=== PATIENT | male | born 1975 | race Caucasian/White ===

== ENCOUNTER 2025-01-15 05:52 | Day surgery (SDC) | payer OTHER ==
[~2025-01-15] VITALS: Ht 172.7 cm; Wt 113.0 kg
[2025-01-15] MEDS ORDERED: PANT20 PO (06:25)
[2025-01-15] MEDS ORDERED: AMLO5 PO (06:26)
[2025-01-15] MEDS ORDERED: LOSA25 PO (06:26)
[2025-01-15] MEDS ORDERED: NS 1,000 ML IV ONE ×2 (06:31→06:45)
[2025-01-15] MEDS ORDERED: NS 0 ML IV ONE (06:31)
[2025-01-15 06:34] VITALS: BP 151/99
[2025-01-15] MEDS ORDERED: Flumazenil 0.1 MG / ML 5ML Vial ONE (06:44)
[2025-01-15] MEDS ORDERED: Naloxone HCl 0.4MG / ML 1ML Vial ONE (06:44)
[2025-01-15] MEDS ORDERED: Midazolam HCl 1MG / ML 2ML Vial ONE (06:44)
[2025-01-15] MEDS ORDERED: Phenylephrine HCl 100 MCG/ML-NS 10MLSYR (1MG/10ML) ONE (06:45)
[2025-01-15] MEDS ORDERED: FentaNYL Citrate 50 MCG/ML 2 ML Injection ONE (06:45)
[2025-01-15] MEDS ORDERED: HYDROcodone 5-APAP 325 TAB ONE (08:49)
[2025-01-15] MEDS ORDERED: HydrALAZINE HCl 20 MG / ML 1ML Vial ONE (08:50)
[2025-01-15 09:01] VITALS: BP 165/116
[2025-01-15 09:10] VITALS: BP 167/112
[2025-01-15 09:30] VITALS: BP 160/96
--- NOTE | 2025-01-15 09:55 | NUR ---
PT AND VERBALIZED UNDERSTANDING OF WRITTEN AND VERBAL D/C INST. IV REMOVED. PT WILL BE TAKEN OUT OF THE HRT CENTER VIA W/C. L FLANK PAIN 10/15. L FLANK DRSG CDI.
== END 2025-01-15 10:00 | disposition home or self-care (01) ==
LOC: MHTC 05:52
DX: N28.89 Other specified disorders of kidney and ureter (principal)
CPT/HCPCS: 50593; 99152; 99153; A9270; C2618; J0360; J2250; J2310; J2371; J3010; J7030; J7040